=== PATIENT | male | born 2000 | race Caucasian/White ===

== ENCOUNTER 2020-08-24 07:39 | Observation (INO) | payer OTHER ==
[~2020-08-24] VITALS: Ht 190.5 cm; Wt 116.0 kg
[2020-08-24] VITALS (9 sets, daily range): BP systolic 94–114; BP diastolic 46–64; PULSE 46–88; TEMP 98–98.4
[2020-08-24 09:30] LABS: HEMATOCRIT 40.3 % (42.0-52.0); HEMOGLOBIN 13.5 g/dl (13.5-18.0); MEAN CELL VOLUME 89 fl (80.0-100.0); MEAN CORPUSCULAR HEMOGLOBIN 30 pg (27.0-31.0); MEAN CORPUSCULAR HGB CONC 34 g/dl (33.0-37.0); MEAN PLATELET VOLUME 9.8 fl (7.4-10.4); PLATELET COUNT 232 K/mm3 (130-400); RED BLOOD COUNT 4.55 M/mm3 (4.20-5.60); REDCELL DISTRIBUTION WIDTH-CV 12.4 % (11.5-14.5)
[2020-08-24 09:44] LABS: BILIRUBIN,TOTAL 1.5 mg/dL (0.0-1.0); CREATININE, serum 0.82 (0.66-1.25); POTASSIUM 4.1 mmol/L (3.4-5.0); TOTAL PROTEIN 6.6 gm/dL (6.4-8.2)
[2020-08-24 12:27] LABS: INR 1.2 (0.8-3.0)
[2020-08-24 12:30] LABS: PARTIAL THROMBOPLASTIN TIME 27.9 SECONDS (26.0-37.0)
[2020-08-24] MEDS ORDERED: 00186-0372-20 IH (14:34)
--- NOTE | 2020-08-24 15:42 | NUR ---
PT ARRIVED TO THE FLOOR, PT DOES TALK A LOT, SEEMS TO BE SOMEWHAT ANXIOUS. RAJ MENARD IS HERE TO TAKE PT TO GET HIS SCOPE AT THIS TIME. PT IS A&OX4. THERE ARE NO OTHER CONCERNS AT THIS TIME.
--- NOTE | 2020-08-24 17:15 | NUR ---
PT RETURNED FROM EGD. PER REPORT X2 DUODENAL ULCERS; X1 CAUTERIZED. PT IS VERY SLEEPY, AND IS RESTING COMFORTABLY IN BED AT THIS TIME. NO C/O PAIN OR DISCOMFORT. NO FURTHER CONCERNS.
--- NOTE | 2020-08-24 19:23 | NUR ---
REPORT GIVEN TO RAJ RODRIGUEZ
--- NOTE | 2020-08-24 19:24 | NUR ---
Received report from Desiree. Seen patient awake, lying in bed. He was eating his dinner. With IV on left hand infusing NS at 125ml/hr. He denies pain. Call light within reach.
--- NOTE | 2020-08-24 22:10 | NUR ---
Night meds given. Patient denies pain. No other needs noted.
[2020-08-25 03:15] VITALS: BP 113/50; PULSE 51; TEMP 97.9
--- NOTE | 2020-08-25 06:14 | NUR ---
Patient had uneventful night. No episodes of vomiting and bowel movement. He denies pain.
[2020-08-25 06:39] LABS: MEAN CELL VOLUME 89 fl (80.0-100.0); MEAN CORPUSCULAR HGB CONC 34 g/dl (33.0-37.0); PLATELET COUNT 184 K/mm3 (130-400); RED BLOOD COUNT 3.69 M/mm3 (4.20-5.60); REDCELL DISTRIBUTION WIDTH-CV 12.3 % (11.5-14.5)
[2020-08-25 06:48] LABS: CALCIUM 8.3 mg/dL (8.4-10.2); CREATININE, serum 0.94 (0.66-1.25); MAGNESIUM 1.7 mg/dL (1.6-2.3)
--- NOTE | 2020-08-25 06:50 | NUR ---
PT LAYING IN BED AT THIS TIME. DENIES NEEDS. WILL ADVANCE DIET TOLERATED. NO FURTHER CONCERNS. CALL LIGHT WITHIN REACH.
[2020-08-25 06:51] LABS: HEMATOCRIT 32.7 % (42.0-52.0); HEMOGLOBIN 11.1 g/dl (13.5-18.0); MEAN CORPUSCULAR HEMOGLOBIN 30 pg (27.0-31.0)
[2020-08-25 08:19] VITALS: BP 112/56; PULSE 85; TEMP 98.4
--- NOTE | 2020-08-25 09:54 | NUR ---
PT LAYING IN BED; ATE BREAKFAST, AND TOLERATED. WILL ADVANCE DIET SLOWLY PER DR. DE LEON'S ORDERS. NO OTHER CONCERNS AT THIS TIME. VITALS REMAIN STABLE. PT DENIES ANY REQUESTS AT THIS TIME. CALL LIGHT WITHIN REACH.
[2020-08-25] MEDS ORDERED: PROTONIX 40MG T40 MG PO (10:39)
[2020-08-25 12:05] VITALS: BP 107/50; PULSE 55; TEMP 98
[2020-08-25 12:21] LABS: HEMOGLOBIN 10.8 g/dl (13.5-18.0)
--- NOTE | 2020-08-25 12:21 | NUR ---
ADVANCING PT DIET TO REGULAR DIET. PT HAS TOLERATED ALL LIQUIDS WELL FOOD GIVEN. CONTACTED FOOD & NUTRITION TO UPDATE DIET NEEDS.
[2020-08-25 12:28] LABS: HEMATOCRIT 31.6 % (42.0-52.0)
--- NOTE | 2020-08-25 12:56 | NUR ---
PT H&H STABLE. PROVIDER IS DISCHARGING PATIENT.
== END 2020-08-25 15:40 | disposition home or self-care (01) ==
LOC: COL.ER 07:39 → MEDICAL 11:48
PROVIDERS: Emergency Medicine; Hospitalist; Physician Assistant; ADMIT Student in an Organized Health Care Education/Training Program
DX: K92.1 Melena (principal); K92.0 Hematemesis; J45.909 Unspecified asthma, uncomplicated
CPT/HCPCS: C9113; G0378; J2405; J2704; J3480; J7030